=== PATIENT | female | born 1985 ===

== ENCOUNTER 2020-04-29 07:30 | Day surgery (SDC) | payer OTHER ==
[~2020-04-29 07:30] MED LIST: ANAPROX275 MG PO
[2020-04-29] MEDS ORDERED: PERCOCET 5-3251 EACH PO (13:03)
== END 2020-04-29 18:00 | disposition home or self-care (01) ==
LOC: CIR.AMB 07:30
PROVIDERS: ATTEND Obstetrics & Gynecology Gynecology
DX: D06.7 Carcinoma in situ of other parts of cervix (principal)